=== PATIENT | female | born 1950 | race African-American/Black ===

== ENCOUNTER 2021-10-19 09:03 | Emergency (ER) | payer MEDICARE, SELFPAY ==
[2021-10-19 09:06] VITALS: BP 184/103; PULSE 85; RESP 22; TEMP 36.4; O2SAT 100
--- NOTE | 2021-10-19 09:36 | ED.EYEPROB ---
HPI - Eye Problem General Chief complaint: Eye Problems Stated complaint: Bleach In Eye Time Seen by Provider: 10/19/21 09:21 History of Present Illness HPI Narrative: Patient is a 71-year-old female here for evaluation of bleach splashed in her right eye this morning. Patient states she was leaning over the bathtub cleaning it, when a small amount of bleach splashed up into her right eye. She did wash the eye out with water and then artificial tears with good relief of her symptoms. She denies any visual changes, but states the eye is burning and stinging. She wears corrective lenses for farsightedness and follows with Dr. Ramirez. Related Data Allergies Allergy/AdvReac Type Severity Reaction Status Date / Time latex Allergy Severe localized Verified 07/03/16 17:59 skin reaction, Tetracyclines Allergy Intermediate itcy rash, Verified 07/03/16 17:59 anxiety erythromycin base Allergy Unknown Verified 12/25/14 08:21 Penicillins Allergy Unknown Verified 12/25/14 08:21 tetracycline Allergy Unknown Verified 12/25/14 08:21 Review of Systems Review of Systems: Gen: Denies fevers or chills Eyes: Reports eye pain. ENT: Denies congestion Respiratory: Denies shortness of breath or cough CV: Denies chest pain or palpitations GI: Denies abdominal pain nausea, emesis or diarrhea denies burning, urgency, frequency or hematuria Musculoskeletal: Denies back pain or muscle pain Neuro: Denies numbness, tingling, weakness or focal weakness Skin: Denies rash Except as documented, all other systems reviewed and negative [facility] Family History Family History (Updated 12/06/15 @ 23:19 by DOCTOR UNKNOWN) Father Hypertension Sibling Hypertension Family history of diabetes mellitus in first degree relative Family history of malignant neoplasm of ovary Patient's sister is Mother Family history of malignant neoplasm of ovary Patient's mother is Social History Social History Smoking status: Never smoker Alcohol intake: current Exam Narrative: APPEARANCE: Well appearing, no pain in distress, well-nourished. Head: normocephalic and atraumatic. EYES: No conjunctival injection bilaterally. Cataracts noted bilaterally. NOSE: No nasal drainage EARS: External ear normal in appearance THROAT: Oropharynx is clear. Mucous membranes are moist. NECK: Supple. No adenopathy, no masses. RESPIRATORY: Airway patent, respirations nonlabored. Clear to auscultation bilaterally, no rales, rhonchi, wheezing. CARDIOVASCULAR: Regular rate and rhythm without murmurs, rubs, or gallops. ABDOMINAL: Normoactive bowel sounds. Soft, nontender, nondistended. No rebound tenderness or guarding. MUSCULOSKELETAL: Extremities are warm and well-perfused. Moves all extremities well. No edema. NEURO: Normal speech. No focal neurologic deficits. SKIN: Skin is warm and dry. No rashes. PSYCHIATRIC: Normal affect/mood. Course Vital Signs Vital signs: Vital Signs Temperature 97.6 F 10/19/21 09:06 Pulse Rate 85 10/19/21 09:06 Respiratory Rate 22 H 10/19/21 09:06 Blood Pressure 184/103 H 10/19/21 09:06 Pulse Oximetry 100 10/19/21 09:06 Oxygen Delivery Room Air 10/19/21 09:06 Temperature 97.6 F 10/19/21 09:06 Pulse Rate 85 10/19/21 09:06 Respiratory Rate 22 H 10/19/21 09:06 Blood Pressure 184/103 H 10/19/21 09:06 Pulse Oximetry 100 10/19/21 09:06 Oxygen Delivery Room Air 10/19/21 09:06 MDM - Eye Problem MDM Narrative Medical decision making narrative: 71-year-old female here for evaluation of bleach splashed in her right eye this morning. Patient is hypertensive, likely due to the pain. Patient without significant conjunctival injection or obvious neurologic abnormality on exam. No pH strips available for testing. visual acuity 20/40 on the left, 20/50 on the right affected eye. Her eyes were irrigated at the eyewash station for 10 minutes. Discussed case
--- NOTE | 2021-10-19 10:39 | PC.NURSE ---
Pt bilateral eyes irrigated at eye wash station for 10 mins per verbal order of PA
[2021-10-19] MEDS: NEOMYCIN/POLYMYXIN/BACITRACIN OPHTH OINTMENT 3.5 GM TUBE 1 APPLIC RIGHT EYE (11:24)
== END 2021-10-19 11:28 | disposition home or self-care (01) ==
PROVIDERS: Emergency Provider General Practice; PCP Internal Medicine
DX: H10.9 Unspecified conjunctivitis (principal)
CPT/HCPCS: 99283; A9270

== ENCOUNTER 2024-02-08 16:14 | Outpatient (CLI) | payer MEDICARE, SELFPAY ==
--- NOTE | ~2024-02-08 | XR_ITS ---
EXAMINATION: XR chest 2V Exam Date/Time: 02/08/2024 16:32 CDT HISTORY: cough and chest tightness x 1.5 weeks Comparison: 07/03/2016. RESULT: Lines, tubes, and devices: None. Lungs and pleura: Clear. Cardiomediastinal silhouette: Stable. Other: No acute osseous or upper abdominal finding. IMPRESSION: No acute cardiopulmonary process. Reviewed, dictated and finalized at location K.
== END 2024-02-08 16:15 | disposition home or self-care (01) ==
LOC: ANHIMG 16:20
PROVIDERS: PCP Internal Medicine; Visit Provider Internal Medicine
DX: R05.9 Cough, unspecified (principal)
CPT/HCPCS: 71046

== ENCOUNTER 2024-03-03 12:58 | Outpatient (CLI) | payer MEDICARE, SELFPAY ==
--- NOTE | ~2024-03-03 | MM_ITS ---
EXAMINATION: MM screening [facility] w [facility] HISTORY: Screening TECHNIQUE: Craniocaudal and mediolateral oblique 3-D tomosynthesis images were obtained and synthetic 2-D images were generated. CAD analysis was submitted and interpreted. COMPARISON: No prior mammogram is available for comparison at this institution. BREAST PARENCHYMAL COMPOSITION: Not dense: There are scattered areas of fibroglandular density. FINDINGS: There is no evidence of suspicious mass, calcification, or architectural distortion to sugg est malignancy in either breast. There has been no suspicious interval change. IMPRESSION: 1. No mammographic evidence of malignancy. 2. Recommend routine screening mammography in one year. BI-RADS Category 1: Negative Reviewed, dictated and finalized at location B.
== END 2024-03-03 12:59 | disposition home or self-care (01) ==
LOC: CHSIMG 12:59
PROVIDERS: PCP Internal Medicine; Visit Provider Internal Medicine
DX: Z12.31 Encounter for screening mammogram for malignant neoplasm of breast (principal)
CPT/HCPCS: 77063; 77067

== ENCOUNTER 2024-04-21 18:07 | Emergency (ER) | payer MEDICARE, SELFPAY ==
--- NOTE | ~2024-04-21 | XR_ITS ---
EXAMINATION: XR chest 2V DATE: 04/21/2024 20:29 INDICATION: Cough. TECHNIQUE: Frontal and lateral views of the chest were obtained. COMPARISON: Chest 2 views 02/08/2024 FINDINGS: There is mild scarring at the lung apices. No pleural effusion or pneumothorax. The heart s ize is normal. IMPRESSION: 1. Mild scarring at the lung apices. Reviewed, dictated and finalized at location A. BLE REPRESENTATIVE
[2024-04-21 18:08] VITALS: PULSE 80; RESP 16; TEMP 36.9; O2SAT 100
[2024-04-21 19:30] LABS: Basophils Percent Auto 0.3 % (0.2-1.2); Hematocrit 39.8 % (37.0-47.0); Hemoglobin 12.7 g/dL (12.0-15.0); Immature Granulocyte Absolute 0.05 K/mm3 (0.00-0.031); Immature Granulocyte Percent A 0.4 % (0-0.5); Lymphocytes Absolute Auto 1.07 K/mm3 (0.9-3.2); Lymphocytes Percent Auto 8.3 % (18.3-44.2); Mean Corpuscular HGB Conc 31.9 g/dl (32-36); Mean Corpuscular Hemoglobin 27.5 pg (26-34); Mean Corpuscular Volume 86.3 fl (80-100); Mean Platelet Volume 10.6 fl (7.4-10.4); Monocytes Absolute Auto 0.5 K/mm3 (0.1-0.6); Monocytes Percent Auto 4.1 % (2.6-8.5); Neutrophils Absolute Auto 11.2 K/mm3 (1.3-6.7); Neutrophils Percent Auto 86.9 % (45.5-73.1); Platelet Count Result 272 k/mm3 (150-375); Red Blood Count 4.61 M/mm3 (4.2-5.4); Red Cell Distribution Width 13.9 % (11.5-14.5); White Blood Count 12.9 K/mm3 (4.5-10.0)
[2024-04-21 19:42] LABS: Alanine Aminotransferase 24 U/L (6-35); Albumin Level 4.3 g/dL (3.5-5.1); Alkaline Phosphatase 83 U/L (38-126); Anion Gap 4 mmol/L (4-12); Aspartate Amino Transferase 34 U/L (14-36); Bilirubin,Total 0.6 mg/dL (0.2-1.3); Blood Urea Nitrogen 12 mg/dL (7-17); Calcium 9.2 mg/dL (8.4-10.2); Carbon Dioxide 24 mmol/L (22-30); Chloride 103 mmol/L (98-107); Estimated CRCL calculation 51 ml/min; Estimated Glomerular Filt Rate > 60; Glucose 111 mg/dL (65-110); Potassium 5.1 mmol/L (3.4-5.0); Sodium 131 mmol/L (137-145)
--- NOTE | 2024-04-21 20:17 | ED_ITS ---
HPI - Weakness General Chief complaint: Weakness Stated complaint: weakness Time Seen by Provider: 04/21/24 19:42 History of Present Illness HPI Narrative: Patient is a 73-year-old female who presents to the ER with complaints of dehydration. She reports she has a history of IBS and can tell when she is starting to become dehydrated. Patient reports her symptoms started yesterday. She has been able to take in p.o. and urinating normally. Patient denies sore throat or fevers. She endorses a cough, abdominal cramping, and headache. Patient reports she thinks her cough is due to acid reflux. She reports her IBS causes her to have constant diarrhea that she has not improved in 2 days. Today she reports she had a small bowel movement approximately half an hour prior to time of examination. Patient reports the bowel movement was small and formed. She also reports she has a history of hypoglycemia. Related Data Allergies Allergy/AdvReac Type Severity Reaction Status Date / Time latex Allergy Severe localized Verified 07/03/16 17:59 skin reaction, Tetracyclines Allergy Intermediate itcy rash, Verified 07/03/16 17:59 anxiety erythromycin base Allergy Unknown Verified 12/25/14 08:21 Penicillins Allergy Unknown Verified 12/25/14 08:21 tetracycline Allergy Unknown Verified 12/25/14 08:21 Review of Systems 2 Review of Systems: All systems reviewed & are unremarkable except as noted in HPI and below PMFSH Family History Family History Father Hypertension Sibling Hypertension Family history of diabetes mellitus in first degree relative Family history of malignant neoplasm of ovary Patient's sister is Mother Family history of malignant neoplasm of ovary Patient's mother is Social History Social History Smoking status: Never smoker Alcohol intake: current Exam 2 Narrative: GENERAL: Well appearing, well-nourished, non-toxic, in no acute distress. HEAD: Normocephalic, atraumatic. NECK: Supple. No adenopathy, no masses. RESPIRATORY: Airway patent, respirations nonlabored. Clear to auscultation bilaterally, no rales, rhonchi, wheezing. CARDIOVASCULAR: Regular rate and rhythm without murmurs, rubs, or gallops. Peripheral pulses 2+ and equal bilaterally. ABDOMINAL: Soft, nontender, nondistended, no hepatosplenomegaly. Normoactive BS. MUSCULOSKELETAL: Moves all extremities. Strength/ROM intact without gross deformities. SKIN: Warm, dry, normal color. No rashes. NEURO: A&O X3. Speech clear. Cranial nerves II-XII grossly intact. Steady gait. No ataxic movements. PSYCHIATRIC: Appropriate mood and affect. Normal interaction. Course Vital Signs Vital signs: Vital Signs Temperature 36.9 C 04/21/24 18:08 Pulse Rate 80 04/21/24 18:08 Respiratory Rate 16 04/21/24 18:08 Pulse Oximetry 100 04/21/24 18:08 Temperature 37.1 C 04/21/24 22:27 Pulse Rate 60 04/21/24 22:27 Respiratory Rate 18 04/21/24 22:27 Blood Pressure 149/68 H 04/21/24 22:27 Pulse Oximetry 100 04/21/24 22:27 MDM - Weakness MDM Narrative Medical decision making narrative: Patient is a 73-year-old female who presents to the ER with complaints of dehydration. She reports she has a history of IBS and can tell when she is starting to become dehydrated. Patient reports her symptoms started yesterday. She has been able to take in p.o. and urinating normally. Patient denies sore throat or fevers. She endorses a cough, abdominal cramping, and headache. Patient reports she thinks her cough is due to acid reflux. She reports her IBS causes her to have constant diarrhea that she has not improved in 2 days. Today she reports she had a small bowel movement approximately half an hour prior to time of examination. Patient reports the bowel movement was small and formed. She also reports she has a history of hypoglycemia. Labs Ordered: CBC, CMP, betahydroxy, phosphorus, magnesium, INR, PTT, hem A1C, lipase, troponin Imaging Ordered: chest x-ray, pt declined an abdominal CT scan Results: Pt chest x-ray indicates There is mild scarring at the lung apices. No pleural effusion or pneumothorax. The heart size is normal. Patient's CBC indicates white blood cell count of 12.9. Her CMP indicates a sodium of 131, potassium of 5 1, glucose of 111, phosphorus of 2.0. patient's troponin was negative. Her lipase was 40. Her beta hydroxybutyrate was 0.21. Patient's A1c was 5.5% Diagnosis: Mild dehydration due to IBS Patient Education/Shared MDM: Patient declined a a CT abdominal scan. She is fairly confident that she knows what is causing symptoms, as she has experienced this before. Results shared with the patient. Patient reports she is feeling much better after 1 L normal saline IV bolus. She reports she would like to be discharged home. Patient advised to follow-up with her primary care provider on Wednesday. She verbalizes understanding and is in agreement with plan. Differential Diagnosis Differential diagnosis: Likely hypoglycemia, dehydration and other (IBS flare- up) Lab Data Attestation: I reviewed the patient's lab results. 04/21/24 19:24 04/21/24 19:24 Labs: Lab Results 04/21/24 04/21/24 04/21/24 Range/Units 19:21 19:24 21:32 WBC 12.9 H (4.5-10.0) K/mm3 RBC 4.61 (4.2-5.4) M/mm3 Hgb 12.7 (12.0-15.0) g/dL Hct 39.8 (37.0-47.0) % MCV 86.3 (80-100) fl MCH 27.5 (26-34) pg MCHC 31.9 L (32-36) g/dl RDW 13.9 (11.5-14.5) % Plt Count 272 (150-375) k/mm3 MPV 10.6 H (7.4-10.4) fl Immature Gran % (Auto) 0.4 (0-0.5) % Neut % (Auto) 86.9 H (45.5-73.1) % Lymph % (Auto) 8.3 L (18.3-44.2) % [place] % (Auto) 4.1 (2.6-8.5) % Eos % (Auto) 0.0 (0-4.4) % Baso % (Auto) 0.3 (0.2-1.2) % Lymph # (Auto) 1.07 (0.9-3.2) K/mm3 [place] # (Auto) 0.5 (0.1-0.6) K/mm3 Eos # (Auto) 0.0 (0-0.3) K/mm3 Baso # (Auto) 0.0 (0.0-0.1) K/mm3 Abs Immat Gran (auto) 0.05 H (0.00-0.031) K/mm3 Absolute Neuts (auto) 11.2 H (1.3-6.7) K/mm3 Absolute Nucleated RBC 0.000 (0.0-0.012) K/mm3 Nucleated RBC % 0.0 (0.0-0.2) % PT 13.3 (11.1-14.7) Seconds INR 1.0 APTT 30.2 (22.3-36.8) Seconds Sodium 131 L (137-145) mmol/L Potassium 5.1 H (3.4-5.0) mmol/L Chloride 103 (98-107) mmol/L Carbon Dioxide 24 (22-30) mmol/L Anion Gap 4 (4-12) mmol/L BUN 12 (7-17) mg/dL Creatinine 0.70 (0.7-1.0) mg/dL Estim Creat Clear Calc 51 ml/min Estimated GFR > 60 (59 - ) Glucose 111 H (65-110) mg/dL Hemoglobin A1c 5.5 (<5.7) % Calcium 9.2 (8.4-10.2) mg/dL Phosphorus 2.0 L (2.5-4.5) mg/dL Magnesium 2.0 (1.6-2.3) mg/dL Total Bilirubin 0.6 (0.2-1.3) mg/dL AST 34 (14-36) U/L ALT 24 (6-35) U/L Alkaline Phosphatase 83 (38-126) U/L Troponin I < 0.012 (0.000-0.034) ng/mL Total Protein 8.0 (6.3-8.2) g/dL Albumin 4.3 (3.5-5.1) g/dL Lipase 40 (23-300) U/L Beta-Hydroxybutyrate/Acetoacetate 0.21 (0.02-0.27) mmol/L Urine Color (Yellow) Urine Appearance (Clear) Urine pH (5.0-9.0) Ur Specific [place] (1.001-1.035) Urine Protein (Negative) mg/dL Urine Glucose (UA) (Negative) mg/dL Urine Ketones (Negative) mg/dL Ur Blood (Man) (Negative) Urine Nitrate (Negative) Urine Bilirubin (Negative) Urine Urobilinogen (<2.0) mg/dL Leukocyte Esterase Rfl (Negative) AMADO/UL Influenza A (RT-PCR) Negative (Negative) Influenza B (RT-PCR) Negative (Negative) RSV (RT-PCR) Negative (Negative) SARS-CoV-2 RNA (RT-PCR) Negative (Negative) 04/21/24 Range/Units 22:34 WBC (4.5-10.0) K/mm3 RBC (4.2-5.4) M/mm3 Hgb (12.0-15.0) g/dL Hct (37.0-47.0) % MCV (80-100) fl MCH (26-34) pg MCHC (32-36) g/dl RDW (11.5-14.5) % Plt Count (150-375) k/mm3 MPV (7.4-10.4) fl Immature Gran % (Auto) (0-0.5) % Neut % (Auto) (45.5-73.1) % Lymph % (Auto) (18.3-44.2) % [place] % (Auto) (2.6-8.5) % Eos % (Auto) (0-4.4) % Baso % (Auto) (0.2-1.2) % Lymph # (Auto) (0.9-3.2) K/mm3 [place] # (Auto) (0.1-0.6) K/mm3 Eos # (Auto) (0-0.3) K/mm3 Baso # (Auto) (0.0-0.1) K/mm3 Abs Immat Gran (auto) (0.00-0.031) K/mm3 Absolute Neuts (auto) (1.3-6.7) K/mm3 Absolute Nucleated RBC (0.0-0.012) K/mm3 Nucleated RBC % (0.0-0.2) % PT (11.1-14.7) Seconds INR APTT (22.3-36.8) Seconds Sodium (137-145) mmol/L Potassium (3.4-5.0) mmol/L Chloride (98-107) mmol/L Carbon Dioxide (22-30) mmol/L Anion Gap (4-12) mmol/L BUN (7-17) mg/dL Creatinine (0.7-1.0) mg/dL Estim Creat Clear Calc ml/min Estimated GFR (59 - ) Glucose (65-110) mg/dL Hemoglobin A1c (<5.7) % Calcium (8.4-10.2) mg/dL Phosphorus (2.5-4.5) mg/dL Magnesium (1.6-2.3) mg/dL Total Bilirubin (0.2-1.3) mg/dL AST (14-36) U/L ALT (6-35) U/L Alkaline Phosphatase (38-126) U/L Troponin I (0.000-0.034) ng/mL Total Protein (6.3-8.2) g/dL Albumin (3.5-5.1) g/dL Lipase (23-300) U/L Beta-Hydroxybutyrate/Acetoacetate (0.02-0.27) mmol/L Urine Color Yellow (Yellow) Urine Appearance Clear (Clear) Urine pH 7.0 (5.0-9.0) Ur Specific [place] 1.002 (1.001-1.035) Urine Protein Negative (Negative) mg/dL Urine Glucose (UA) Negative (Negative) mg/dL Urine Ketones Negative (Negative) mg/dL Ur Blood (Man) Negative (Negative) Urine Nitrate Negative (Negative) Urine Bilirubin Negative (Negative) Urine Urobilinogen 0.2 (<2.0) mg/dL Leukocyte Esterase Rfl Negative (Negative) AMADO/UL Influenza A (RT-PCR) (Negative) Influenza B (RT-PCR) (Negative) RSV (RT-PCR) (Negative) SARS-CoV-2 RNA (RT-PCR) (Negative) Imaging Data Attestation: I personally reviewed and interpreted this imaging study as follows: Radiologist's impression: Impressions Chest X-Ray 04/21/24 20:39 IMPRESSION: 1. Mild scarring at the lung apices. Discharge Plan Discharge Clinical Impression: Dehydration Patient Disposition: Home, Self-Care Condition: Stable Instructions: Antibiotic Form, Dehydration (ED) Additional Instructions: Please return to the ER with an worsening symptoms. Follow-up with primary care provider in the next 2-3 days. Take all medications as prescribed. Patient Language: Azeri Prescriptions: No Action bacitracin 500 unit/gram ointment 1 applic RIGHT EYE Q8H 5 Days Qty: 3.5 0RF Follow-up/Referrals: Stephanie Layton MD [Primary Care Provider] - Time of Disposition: 23:46
--- NOTE | 2024-04-21 20:20 | ECG_ITS ---
Test Date: 2024-04-21 21:31:02 Measurements Intervals [place] Rate: 65 P: 54 MT: 168 QRS: -14 QRSD: 98 T: 13 QT: 418 QTc: 436 Interpretive Statements SINUS RHYTHM POSSIBLE LEFT ATRIAL ENLARGEMENT [-0.1mV P-WAVE IN V1/V2] POSSIBLE LEFT VENTRICULAR HYPERTROPHY [VOLTAGE CRITERIA PLUS LAE OR QRS WIDENING] No previous ECG available for comparison Electronically Signed On 04-22-2024 08:58:38 REHABILITATION SUPERVISOR by Pancho Miller M.D.
[2024-04-21 20:35] LABS: Lipase 40 U/L (23-300)
[2024-04-21 20:48] LABS: Troponin I < 0.012 ng/mL (0.000-0.034)
[2024-04-21] MEDS: SODIUM CHLORIDE 0.9% IV 1,000 ML 999 ML IV CONT (21:01)
[2024-04-21 21:17] LABS: Prothrombin Time 13.3 Seconds (11.1-14.7)
[2024-04-21 21:18] LABS: Partial Thromboplastin Time 30.2 Seconds (22.3-36.8)
[2024-04-21 22:15] LABS: Influenza A QL RT-PCR Negative (Negative); Influenza B QL RT-PCR Negative (Negative); RSV RNA, RT-PCR Negative (Negative); SARS-CoV-2 RNA PCR Negative (Negative)
[2024-04-21 22:27] VITALS: BP 149/68; PULSE 60; RESP 18; TEMP 37.1; O2SAT 100
[2024-04-21 22:39] LABS: Add Urine Microscopic? NO; Appearance Urine Clear (Clear); Bilirubin Urine Negative (Negative); Blood Urine Negative (Negative); Color Urine Yellow (Yellow); Glucose Urine UA Negative (Negative); Ketones Urine Negative (Negative); Leukocyte Esterase Ur Negative LEU/UL (Negative); Nitrate Urine Negative (Negative); Protein Urine Negative (Negative); Specific Grav Ur 1.002 (1.001-1.035); Urobilinogen Urine 0.2 mg/dL (<2.0)
[2024-04-21 23:29] LABS: Beta-Hydroxybutyrate/Acetoacetate 0.21 mmol/L (0.02-0.27)
[2024-04-21 23:31] LABS: Hemoglobin A1C 5.5 % (<5.7)
--- OUTSIDE RECORDS SUMMARY | 2024-04-25 11:21 | XMS_ITS | Clinical Summary ---
Author Organization [facility] Address [address] [place] [address] Care Team Providers Care Sales Secretary Name Role Phone Stephanie Layton MD Primary Care Provider [phone] Source Comments [facility],non-[facility] Affiliates and Associated Physician Practices is amultiple site organization consisting of ambulatory clinics and hospital sitesin [place], [place], [place] and [place]. This disclosure is being madepursuant to the Care Everywhere program and may not contain all information available regarding this patient. Last updated 18.[facility] Allergies Active Allergy Reactions Criticality Noted Date Comments Erythromycin 01/18/2017 Latex 01/18/2017 Penicillins Rash Medium 01/18/2017 Urethane 01/18/2017 Tetracycline Itching 06/09/2018 Medications * Be aware that medications may not be up to date on this document. Alwaysverify current medications with the patient. Medication Sig Dispensed Refills Start Date End Date Status fluticasone propionate (FLONASE) 50 MCG/ACT nasal spray [place] 2 Sprays into each nostril once daily Active mometasone (NASONEX) 50 MCG/ACT nasal spray [place] 1 [place] into each nostril 2 times daily Active chloramphenicol (CHLOROMYCETIN) 30 mg/ml Take by mouth once daily Active olopatadine (PATADAY) 0.2 % ophthalmic solution Instill 1 (one) drop into both eyes once daily 2.5 mL 08/03/2020 Active Social History Tobacco Use Types Packs/Day Years Used Date Smoking Tobacco: Never Smokeless Tobacco: Never Tobacco Cessation:Counseling Given: Yes Sex and Gender Information Value Date Recorded Sex Assigned at Not on file Gender Identity Not on file Sexual Orientation Not on file Last Filed Vital Signs Vital Sign Reading Time Taken Comments Blood Pressure 142/90 08/03/2020 3:06 PM CDT Pulse 68 08/03/2020 3:06 PM CDT Temperature 36.9 ??C (98.4 ??F) 08/03/2020 3:06 PM CD T Respiratory Rate 16 08/03/2020 3:06 PM CDT Oxygen Saturation 97% 08/03/2020 3:06 PM CDT Inhaled Oxygen Concentration - - Weight 68 kg (150 lb) 08/03/2020 3:06 PM CDT Height 160 cm (5' 3 ) 08/03/2020 3:06 PM CDT Body Mass Index 26.57 08/03/2020 3:06 PM CDT Plan of Treatment Health Maintenance Due Date Last Done Comments BONE DENSITY TESTING 1950 COLOGUARD (AGES 45-75) - COL ON CA SCREENING 1950 COLON MONITORING 1950 COLONOSCOPY - COLON CA SCREENING 1950 CT COLONOGRAPHY - COLON CA SCREENING 1950 Colorectal Cancer Screening 1950 FIT - COLON CA SCREENING 1950 FLEX SIG - COLON CA SCREENING 1950 LIPID TESTING 1950 MAMMOGRAM 1950 HEPATITIS C SCREENING 05/02/1968 DTAP/TDAP/TD VACCINES (1 - Tdap) 1969 ZOSTER VACCINE (1 of 2) 2000 PNEUMOCOCCAL VACCINE 65+ (1 of 1 - PCV) 2015 SCREENING FOR DIABETES 08/03/2020 DEPRESSION SCREENING 05/10/2023 MEDICARE AWV ? CALENDAR YEAR 2023 COVID-19 VACCINE (3 - 2023-2 5 season) 2024 06/28/2020, 06/07/2020 INFLUENZA VACCINE (#1) 2024 Respiratory Syncytial Virus (RSV) Vaccine Pt: or over 60 yrs (1 - 1-dose 75+ series) 2025 HEPATITIS B VACCINE Aged Out No longe r eligible based on patient's age to complete this topic HIB VACCINE Aged Out No longer eligi ble based on patient's age to complete this topic HPV VACCINE Aged Out No longer eligi ble based on patient's age to complete this topic MENINGOCOCCAL VACCINE Aged Out No brigitte mami eligible based on patient's age to complete this topic Care Teams Sales Secretary Relationship Specialty Start Date End Date Stephanie Layton MD PCP - General Internal Medicine 08/03/20
--- OUTSIDE RECORDS SUMMARY | 2024-04-25 11:21 | XMS_ITS | Encounter Summary ---
Author Organization [facility] [employer] Address [address] [place] [address] Care Team Providers Care Russet Repairer Name Role Phone Unavailable Primary Care Provider Unavailabl e Reason for Visit * Reason Onset Date Comments Medication Issue 06/11/2018 Patient Requested Call 06/11/2018 Update 06/11/2018 Medication Request 06/11/2018 Encounter Details Date Type Department Care Team (Late st Contact Info) Description 06/11/2018 Telephone [facility] [address] [phone] Provider, Theodore Hsieh [place] Medication Issue; Patient Requested Call; Update; Medication Request Social History Tobacco Use Types Packs/Day Years Used Date Smoking Tobacco: Never Smokeless Tobacco: Never Sex and Gender Information Value Date Recorded Sex Assigned at Not on file Gender Identity Not on file Sexual Orientation Not on file documented as of this encounter Miscellaneous Notes * Telephone Encounter - Brian Smith APRN-CNP - 06/11/2018 3:32 PM TRANSIT OPERATOR Pt states she is not tolerated the medication well. We are going to switch her to Cipro. See note in chart. Pt VU SIT OPERATOR * Telephone Encounter - Zoraida Dupont - 06/11/2018 2:42 PM CST Who is calling? self What is the reason for call? Calling to update the DIRECTOR LEARNING SERVICES. Pt was seen on 06/09/18 and Dx with Acute cystitis with hematuria +1. Pt was prescribed nitrofurantoin monohyd macro crystals (MACROBID) 100 MG capsules. Pt is stating this medication is really tearing up her stomach and she does not feel safe continuing with this medication. Pt is requesting an alternative medication at this time. Expected Response from the Clinic? ( ex. Call back, etc..) Please advise Pt at [phone] (H) SIT OPERATOR documented in this encounter Plan of Treatment Not on file documented as of this encounter Visit Diagnoses Not on filedocumented in this encounter
--- OUTSIDE RECORDS SUMMARY | 2024-04-25 11:21 | XMS_ITS | Referral Summary ---
Author Organization [facility] [employer] Address [address] [place] [address] Care Team Providers Care Mold Car Pusher Name Role Phone Stephanie Layton MD Primary Care Provider [phone] Source Comments [facility],non-[facility] Affiliates and Associated Physician Practices is amultiple site organization consisting of ambulatory clinics and hospital sitesin [place], [place], [place] and [place]. This disclosure is being madepursuant to the Care Everywhere program and may not contain all information available regarding this patient. Last updated 18.[facility] [employer] Allergies Active Allergy Reactions Criticality Noted Date Comments Erythromycin 01/18/2017 Latex 01/18/2017 Penicillins Rash Medium 01/18/2017 Urethane 01/18/2017 Tetracycline Itching 06/09/2018 Medications * Be aware that medications may not be up to date on this document. Alwaysverify current medications with the patient. Medication Sig Dispensed Refills Start Date End Date Status fluticasone propionate (FLONASE) 50 MCG/ACT nasal spray [place] 2 Sprays into each nostril once daily Active mometasone (NASONEX) 50 MCG/ACT nasal spray [place] 1 [place] into each nostril 2 times daily Active [...] 08/03/2020 3:06 PM CDT Plan of Treatment Not on file Care Teams Mold Car Pusher Relationship Specialty Start Date End Date Stephanie Layton MD PCP - General Internal Medicine 08/03/20
--- OUTSIDE RECORDS SUMMARY | 2024-04-25 11:21 | XMS_ITS | Encounter Summary ---
Author Organization [facility] Address [address] [place] [address] Care Team Providers Care Mud Analysis Supervisor Name Role Phone Stephanie Layton MD Primary Care Provider [phone] Reason for Visit * Reason Onset Date Comments Follow-up 08/05/2020 Encounter Details Date Type Department Care Team (Late st Contact Info) Description 08/05/2020 Telephone [facility] [employer] [facility] AT [address] [phone] Ada Rinaldi Follow-up Social History Tobacco Use Types Packs/Day Years Used Date Smoking Tobacco: Never Smokeless Tobacco: Never Sex and Gender Information Value Date Recorded Sex Assigned at Not on file Gender Identity Not on file Sexual Orientation Not on file COVID-19 Exposure Response Date Recorded In the last month, have you been in contact with someone who was confirmed or suspected to have Coronavirus / COVID-19? No / Unsure 08/03/2020 1:23 PM CDT documented as of this encounter Miscellaneous Notes * Telephone Encounter - Ada Rinaldi - 08/05/2020 12:33 PM CDT Courtesy follow-up phone call made to patient. Message left advising patient to call service [facility] [phone] if they have any questions or concerns. documented in this encounter Plan of Treatment Not on file documented as of this encounter Visit Diagnoses Not on filedocumented in this encounter Care Teams Mud Analysis Supervisor Relationship Specialty Start Date End Date Stephanie Layton MD PCP - General Internal Medicine 08/03/20 documented as of this encounter
--- OUTSIDE RECORDS SUMMARY | 2024-04-25 11:21 | XMS_ITS | Encounter Summary ---
Author Organization [facility] Address [address] [place] [address] Care Team Providers Care Giant Tire Repairer Name Role Phone Stephanie Layton MD Primary Care Provider [phone] Encounter Details Date Type Department Care Team (Latest Contact Info) Description 08/03/2020 Travel Social History Tobacco Use Types Packs/Day Years Used Date Smoking Tobacco: Never Assessed Sex and Gender Information Value Date Recorded Sex Assigned at Not on file Gender Identity Not on file Sexual Orientation Not on file COVID-19 Exposure Response Date Recorded In the last month, have you been in contact with someone who was confirmed or suspected to have Coronavirus / COVID-19? No / Unsure 08/03/2020 1:23 PM CDT documented as of this encounter Plan of Treatment Not on file documented as of this encounter Visit Diagnoses Not on filedocumented in this encounter Care Teams Giant Tire Repairer Relationship Specialty Start Date End Date Stephanie Layton MD PCP - General Internal Medicine 08/03/20 documented as of this encounter
--- OUTSIDE RECORDS SUMMARY | 2024-04-25 11:21 | XMS_ITS | Patient Health Summary ---
Author Organization [facility] Address [address] [place] [address] Care Team Providers Care Pmo Manager Name Role Phone Stephanie Layton MD Primary Care Provider [phone] Note from [facility],non-owned Affiliates and Associated Physician Practices is amultiple site organization consisting of ambulatory clinics and hospital sitesin [place], [place], [place] and [place]. This disclosure is being madepursuant to the Care Everywhere program and may not contain all information available regarding this patient. Last updated 18.[facility] Allergies * Erythromycin * Latex * Penicillins(Rash) -Medium Criticality * Urethane * Tetracycline(Itching) Medications * Be aware that medications may not be up to date on this document. Alwaysverify current medications with the patient. * fluticasone propionate (FLONASE) 50 MCG/ACT nasal spray [place] 2 Sprays into each nostril once daily * mometasone (NASONEX) 50 MCG/ACT nasal spray [place] 1 [place] into each nostril 2 times daily * chloramphenicol (CHLOROMYCETIN) 30 mg/ml Take by mouth once daily * olopatadine (PATADAY) 0.2 % ophthalmic solution(Started 08/03/2020) Instill 1 (one) drop into both eyes once daily Social History Tobacco Use Types Packs/Day Years [...] Mass Index 26.57 08/03/2020 3:06 PM CDT Procedures * CULTURE URINE(Performed 06/09/2018) Performed for Acute cystitis with hematuria * URINALYSIS AUTO - POINT OF CARE (AMB) STL(Performed 06/09/2018) Performed for Acute cystitis with hematuria Results * (ABNORMAL) CULTURE URINE (06/09/2018 10:59 AM RADIATOR SPECIALIST) Culture (A) [facility] Comment: ??CULTURE, URINE, ROUTINE ?MICRO NUMBER: ?[id number] ??TEST STATUS: ? FINAL ??SPECIMEN SOURCE: ?? URINE, CLEAN CATCH ??SPECIMEN QUALITY: ??ADEQUATE ??RESULT: ?10,000-50,000 CFU/mL of Escherichia coli ?E.coli ?INT ?? JAMES ?? AMOX/CLAVULANATE ? S ? <=2 ?? AMPICILLIN ? S ? <=2 ?? AMP/SULBACTAM ?S ? <=2 ?? CEFAZOLIN ?NR ?<=4 2 ?? CEFEPIME ? S ? <=1 ?? CEFTRIAXONE ?S ? <=1 ?? CIPROFLOXACIN ?S ? <=0.25 ?? ERTAPENEM ?S ? <=0.5 ?? GENTAMICIN ? S ? <=1 ?? IMIPENEM ? S ? <=0.25 ?? LEVOFLOXACIN ? S ? <=0.12 ?? NITROFURANTOIN ? S ? <=16 ?? PIP/TAZOBACTAM ? S ? <=4 ?? TOBRAMYCIN ? S ? <=1 ?? TRIMETHOPRIM/SULFA ? S ? <=20 S=Susceptible ??I=Intermediate ??R=Resistant ??* = Not Tested NR = Not Reported ??NN = See Therapy Comments THERAPY COMMENTS ?Note 1: ?For infections other than uncomplicated UTI ?caused by E. coli, K. pneumoniae or P. mirabilis: ?Cefazolin is resistant if JAMES > or = 8 mcg/mL. ?(Distinguishing susceptible versus intermediate ?for isolates with JAMES < or = 4 mcg/mL requires ?additional testing.) ?Note 2: ?For uncomplicated UTI caused by E. coli, ?K. pneumoniae or P. mirabilis: Cefazolin is ?susceptible if JAMES <32 mcg/mL and predicts ?susceptible to the oral agents cefaclor, cefdinir, ?cefpodoxime, cefprozil, cefuroxime, cephalexin ?and loracarbef. Test Performed at: [facility] ??[id number] EDMOND HIDALGO MD Urine URINE SPECIMEN OBTAINED BY CLEAN CATCH PROCEDURE / Unknown 06/09/2018 10:59 AM RADIATOR SPECIALIST 06/11/2018 12:42 AM RADIATOR SPECIALIST Connor Chery APRN-CANDY BAR ATTENDANT LAB - MICROBIOLOG Y ORDERABLES [address] [address] * (ABNORMAL) URINALYSIS AUTO - POINT OF CARE (AMB) STL (06/09/2018 10:51 AM RADIATOR SPECIALIST) Clarity UA POCT cloudy Color UA POCT yellow Leukocyte UA 125+ Negative Nitrite UA POCT negative Negative Urobilinogen UA 0.2 0.1 - 1.0 Protein UA POCT 15+ Negative pH UA 6.0 5.0 - 8.0 pH units Blood UA 50 Negative Specific [place] UA POCT 1.015 1.002 - 1.030 Ketone UA negative Negative Bilirubin UA POCT negative Negative Glucose UA negative Negative Expiration Date [id number] Lot # [id number] QC Verified Yes Yes Urine URINE / Unknown 06/09/2018 1 0:51 AM RADIATOR SPECIALIST Connor PACHECOCANDY BAR ATTENDANT LAB - POINT OF CA RE ORDERABLES Care Teams Pmo Manager Relationship Specialty Start Date End Date Stephanie Layton MD PCP - General Internal Medicine 08/03/20
--- OUTSIDE RECORDS SUMMARY | 2024-04-25 11:21 | XMS_ITS | Encounter Summary ---
Author Organization [facility] Address [address] [place] [address] Care Team Providers Care Mixer Foam Rubber Name Role Phone Stephanie Layton MD Primary Care Provider [phone] Reason for Visit * Reason Comments Eye Problem started today left e ye Encounter Details Date Type Department Care Team (Late st Contact Info) Description 08/03/2020 3:30 PM CDT Office Visit [facility] AT [address] [address] Provider, [facility] Allergic conjunctivitis of left eye (Primary Dx) Social History Tobacco Use Types Packs/Day Years [...] PM CDT documented as of this encounter Last Filed Vital Signs Vital Sign Reading [...] Mass Index 26.57 08/03/2020 3:06 PM CDT documented in this encounter Patient Instructions * Patient Instructions* Breana Spence, ADMIN DIR-EVALUATION ASSISTANT - 08/03/2020 3:36 PM CDT Patient Education Conjunctivitis WHAT YOU NEED TO KNOW: What is conjunctivitis? Conjunctivitis, or pink eye, is inflammation of your conjunctiva. The conjunctiva is a thin tissue that covers the front of your eye and the back of your eyelids. The conjunctiva helps protect your eye and keep it moist. What causes conjunctivitis? Conjunctivitis is easily spread from person to person. The most common cause of conjunctivitis is infection with bacteria or a virus. This often happens when bacteria getsinto your eye. This can happen when you touch your eye or wear contact lenses. Allergies are also acommon cause of conjunctivitis. The cells in your conjunctiva can react to an allergen. Some examples of allergens include grass, dust, animal fur, or mascara. What are the signs and symptoms of conjunctivitis? You will usually have symptoms in both eyes if your conjunctivitis is caused by allergies. You may also have other allergic symptoms, such as a rashor runny nose. Symptoms will usually start in 1 eye if your conjunctivitis is caused by a virus or bacteria. You may also have other symptoms of an infection, such as sore throat and fever. You may have any of the following: ?? Redness in the whites of your eye ?? Itching in your eye or around your eye ?? Feeling like there is something in your eye ?? Watery or thick, sticky discharge ?? Crusty eyelids when you wake up in the morning ?? Burning, stinging, or swelling in your eye ?? Pain when you see bright light How is conjunctivitis diagnosed? Your healthcare provider will ask about your symptoms and medical history. He will ask if you have been around anyone who is sick or has pink eye. He will ask if you have allergies. Tell him if you wear contact lenses. You may need any of the following: ?? An eye exam will be done by your healthcare provider. He will look at your eyes, eyelids, eyelashes, and the skin around your eyes. He will ask you to look in different directions. He may gently press on your eye or eyelid to see if there is drainage. He will also look for redness and swelling in your eyelids or conjunctiva. Your healthcare provider may gently swab your conjunctiva with a cotton swab and send it to the lab for tests. This will help your healthcare provider find out what is causing your conjunctivitis. ?? A slit-lamp microscope is a special microscope with a bright light used to look into your eye. Your healthcare provider will look for signs of infection or inflammation. This microscope also helpshim see if the different parts of your eyes are healthy. How is conjunctivitis treated? Your conjunctivitis may go away on its own. Treatment depends on what is causing your conjunctivitis. You may need any of the following: ?? Allergy medicine helps decrease itchy, red, swollen eyes caused by allergies. It may be given asa pill, eye drops, or nasal spray. ?? Antibiotics may be needed if your conjunctivitis is caused by bacteria. This medicine may be given as a pill, eye drops, or eye ointment. How can I manage my symptoms? ?? Apply a cool compress. Wet a washcloth with cold water and place it on your eye. This will help decrease itching and irritation. ?? Do not wear contact lenses. They can irritate your eye. Throw away the pair you are using and ask when you can wear them again. Use a new pair of lenses when your healthcare provider says it is okay. ?? Avoid irritants. Stay away from smoke filled areas. Shield your eyes from wind and sun. ?? Flush your eye. You may need to flush your eye with saline to help decrease your symptoms. Ask for more information on how to flush your eye. How do I prevent the spread of conjunctivitis? ?? Wash your hands with soap and water often. Wash your hands before and after you touch your eyes.Also wash your hands before you prepare or eat food and after you use the bathroom or change a diaper. ?? Avoid allergens. Try to avoid the things that cause your allergies, such as pets, dust, or grass. ?? Avoid contact with others. Do not share towels or washcloths. Try to stay away from others as much as possible. Ask when you can return to work or school. ?? Throw away eye makeup. The bacteria that caused your conjunctivitis can stay in eye makeup. Throw away mascara and other eye makeup. When should I seek immediate care? ?? You have worsening eye pain. ?? The swelling in your eye gets worse, even after treatment. ?? Your vision suddenly becomes worse or you cannot see at all. When should I contact my healthcare provider? ?? You develop a fever and ear pain. ?? You have tiny bumps or spots of blood on your eye. ?? You have questions or concerns about your condition or care. CARE AGREEMENT: You have the right to help plan your care. Learn about your health condition and how it may be treated. Discuss treatment options with your healthcare providers to decide what care you want to receive. You always have the right to refuse treatment. The above information is an teacher aide clerical only. It is not intended as medical advice for individual conditions or treatments. Talk to your doctor, nurse or pharmacist before following any medical regimen to see if it is safe and effective for you. ?? Copyright [employer] 2020 Information is for End User's use only and may not be sold, redistributed or otherwise used for commercial purposes. All illustrations and images included in CareNotes?? are the copyrighted property of [email or web address] or [employer] documented in this encounter Progress Notes * Breana Spence APRN-CNP - 08/03/2020 3:16 PM CDT Subjective: Erin An is a 70 year old female who presents for evaluation: Chief Complaint Patient presents with ??? Eye Problem started today left eye Primary Care Physician is Stephanie Layton MD. Symptoms include left eye is itchy and red. Has a history of allergies and is sensitive to certain smells. Went to the dentist on Wednesday and he uses a vanilla air mister. It instantly made her eye watery and itchy and then she woke up today and her left eye was very red also. Also has very mild pain around the eye, but denies eye trauma, crusting, sensitivity to light, or changes in vision. Does not wear contacts. Eye does not feel gritty. Onset of symptoms was today unchanged since that time. Denies fever or chills. No known sick contacts. She is drinking plenty of fluids. Evaluation to date: none. Treatment to date: Zatador with only temporary relief, red eye drops, saline eye wash Allergies Allergen Reactions ??? Latex ??? Pcn [Penicillins] Rash ??? Tetracycline Itching ??? Erythromycin ??? Polyurethane [Urethane] Outpatient Medications Marked as Taking for the 08/03/20 encounter (Office Visit) with Provider, [facility] Medication Sig ??? chloramphenicol (CHLOROMYCETIN) 30 mg/ml Take by mouth once daily ??? fluticasone propionate (FLONASE) 50 MCG/ACT nasal spray [place] 2 Sprays into each nostril once daily ??? mometasone (NASONEX) 50 MCG/ACT nasal spray [place] 1 [place] into each nostril 2 times daily ??? olopatadine (PATADAY) 0.2 % ophthalmic solution Instill 1 (one) drop into both eyes once daily Past Medical History: Diagnosis Date ??? Acid reflux ??? Borderline hypertension ??? IBS (irritable bowel syndrome) There is no problem list on file for this patient. Past Surgical History: Procedure Laterality Date ??? Hysterectomy ??? Meniscectomy Left repair Social History Socioeconomic History ??? Marital status: Spouse name: Not on file ??? Number of children: Not on file ??? Years of education: Not on file ??? Highest education level: Not on file Occupational History ??? Not on file Social Needs ??? Financial resource strain: Not on file ??? Food insecurity Worry: Not on file Inability: Not on file ??? Transportation needs Medical: Not on file Non-medical: Not on file Tobacco Use ??? Smoking status: Never Smoker ??? Smokeless tobacco: Never Used Substance and Sexual Activity ??? Alcohol use: Not on file ??? Drug use: Not on file ??? Sexual activity: Not on file Lifestyle ??? Physical activity Days per week: Not on file Minutes per session: Not on file ??? Stress: Not on file Relationships ??? Social connections Talks on phone: Not on file Gets together: Not on file Attends lutheran service: Not on file Active member of club or organization: Not on file Attends meetings of clubs or organizations: Not on file Relationship status: Not on file ??? Intimate partner violence Fear of current or ex partner: Not on file Emotionally abused: Not on file Physically abused: Not on file Forced sexual activity: Not on file Other Topics Concern ??? Not on file Social History Narrative ??? Not on file Medications reviewed. Review of Systems Pertinent items are noted in HPI Constitutional: Negative for fevers, chills. Eyes: Positive for redness and itching to left eye Ears, nose, mouth, and throat: Negative for sore throat, congestion or runny nose Respiratory: Negative for shortness of breath, acute cough Neurological: Negative Objective: BP 142/90 (BP SITE: LEFT ARM, BP POSITION: SITTING, BP CUFF SIZE: 11) Pulse 68 Temp 98.4 ??F (36.9 ??C) (Oral) Resp 16 Ht 1.6 m (5' 3 ) Wt 68 kg (150 lb) SpO2 97% BMI 26.57 kg/m2 Skin: Physical Exam Exam General appearance: alert, cooperative, no distress, oriented to person, place, and time, wellappearing Head: normocephalic, without trauma Eyes: left sclera erythematous with mild watering noted. Right sclera clear. conjunctiva pale bilaterally, EOMI and PERRLA, lids normal. Fluorescein stain performed with no sign of corneal abrasion. Nose: nares open; no septal deviation is noted, nasal mucosa not inflamed Throat: no mucous membrane abnormalities Lungs: breath sounds normal and symmetric; no rales or wheezes Heart: regular rhythm, normal S1 and S2, without murmurs, gallops or rubs Neurologic: mental status normal; alert and oriented X 3 No results found for this or any previous visit (from the past 24 hour(s)). Assessment: Encounter Diagnoses Name Primary? Allergic conjunctivitis of left eye Yes Plan: Discussed with pharmacist the name of prior prescription allergy eye drops. Suggested symptomatic OTC remedies. Take Rx ophthalmic drops as directed Continue eye wash and daily allergy medication as directed. Refrain from touching your eye. Touching or rubbing the eyes can increase risk for infection. Good handwashing is important. Orders Placed This Encounter ??? olopatadine (PATADAY) 0.2 % ophthalmic solution Sig: Instill 1 (one) drop into both eyes once daily Dispense: 2.5 mL Refill: 0 Continue to follow up with Stephanie Layton MD as directed. After Visit Summary reviewed with patient. The patient indicates understanding of these issues and agrees with the plan. Patient discharged to Home .FRANKIE Huggins 08/03/2020 4:02 PM documented in this encounter Plan of Treatment Not on file documented as of this encounter Visit Diagnoses Diagnosis Allergic conjunctivitis of left eye- Primary Other chronic allergic conjunctivitis documented in this encounter Care Teams Mixer Foam Rubber Relationship Specialty Start Date End Date Stephanie Layton MD PCP - General Internal Medicine 08/03/20 documented as of this encounter
--- OUTSIDE RECORDS SUMMARY | 2024-04-25 11:21 | XMS_ITS | Encounter Summary ---
Author Organization [facility] Address [address] [place] [address] Care Team Providers Care Music Internship Name Role Phone Unavailable Primary Care Provider Unavailabl e Reason for Visit * Reason Onset Date Comments Reminder Call 06/16/2018 Encounter Details Date Type Department Care Team (Late st Contact Info) Description 06/16/2018 Telephone [facility] [facility] AT [address] [id number] Damion Coronado APRN-CNP [address] [place] [phone] Reminder Call Social History Tobacco Use Types Packs/Day Years Used Date Smoking Tobacco: Never Smokeless Tobacco: Never Sex and Gender Information Value Date Recorded Sex Assigned at Not on file Gender Identity Not on file Sexual Orientation Not on file documented as of this encounter Miscellaneous Notes * Telephone Encounter - Damion Coronado APRN-CNP - 06/16/2018 10:37 AM DATA MANAGEMENT ENGINEER Lab culture: E coli positive and Sensitive to Cipro, the chosen abx. SHIPYARD PAINTING SUPERVISOR called and spoke to pt who stated she was doing much better. SHIPYARD PAINTING SUPERVISOR gave update and discussed the result and tx, that is working well--per pt. No other questions from pt. MANAGEMENT ENGINEER documented in this encounter Plan of Treatment Not on file documented as of this encounter Visit Diagnoses Not on filedocumented in this encounter
--- OUTSIDE RECORDS SUMMARY | 2024-04-25 11:21 | XMS_ITS | Encounter Summary ---
Author Organization [facility] Address [address] [place] [address] Care Team Providers Care District Manager Postal Service Name Role Phone Stephanie Layton MD Primary Care Provider [phone] Encounter Details Date Type Department Care Team [...] on filedocumented in this encounter Care Teams District Manager Postal Service Relationship Specialty Start Date End Date Stephanie Layton MD PCP - General Internal Medicine 08/03/20 documented as of this encounter
--- OUTSIDE RECORDS SUMMARY | 2024-04-25 11:21 | XMS_ITS | Encounter Summary ---
Author Organization [facility] Address [address] [place] [address] Care Team Providers Care Fleet Maintenance Manager Name Role Phone Stephanie Layton MD Primary Care Provider [phone] Encounter Details Date Type Department Care Team (Late st Contact Info) Description 08/05/2020 Orders Only [facility] - COVID Vax [address] [place] [address] [phone] Manjit Aleman MD [address] [address] [place] [phone] Need for vaccination Social History Tobacco Use Types Packs/Day Years [...] as of this encounter Visit Diagnoses Diagnosis Need for vaccination Need for prophylactic vaccination and inoculation against unspecified single disease documented in this encounter Care Teams Fleet Maintenance Manager Relationship Specialty Start Date End Date Stephanie Layton MD PCP - General Internal Medicine 08/03/20 documented as of this encounter
--- OUTSIDE RECORDS SUMMARY | 2024-04-25 11:21 | XMS_ITS | Encounter Summary ---
Author Organization [facility] Address [address] [place] [address] Care Team Providers Care Chair And Couch Maker Name Role Phone Unavailable Primary Care Provider Unavailabl e Reason for Visit * Reason Onset Date Comments Follow-up 06/11/2018 Encounter Details Date Type Department Care Team (Late st Contact Info) Description 06/11/2018 Telephone [facility] [address] [place] [address] Brian Smith, CATARACT LENS GENERATOR-FUND RAISER [address] [place] [address] Follow-up Social History Tobacco Use Types Packs/Day Years Used Date Smoking Tobacco: Never Smokeless Tobacco: Never Sex and Gender Information Value Date Recorded Sex Assigned at Not on file Gender Identity Not on file Sexual Orientation Not on file documented as of this encounter Plan of Treatment Not on file documented as of this encounter Visit Diagnoses Not on filedocumented in this encounter
--- OUTSIDE RECORDS SUMMARY | 2024-04-25 11:21 | XMS_ITS | Encounter Summary ---
Author Organization [facility] Address [address] [place] [address] Care Team Providers Care Intensive Care Ambulance Paramedic Name Role Phone Stephanie Layton MD Primary Care Provider [phone] Encounter Details Date Type Department Care Team [...] on filedocumented in this encounter Care Teams Intensive Care Ambulance Paramedic Relationship Specialty Start Date End Date Stephanie Layton MD PCP - General Internal Medicine 08/03/20 documented as of this encounter
--- OUTSIDE RECORDS SUMMARY | 2024-04-25 11:21 | XMS_ITS | Encounter Summary ---
Author Organization [facility] Address [address] [place] [address] Care Team Providers Care Neon Electrician Name Role Phone Unavailable Primary Care Provider Unavailabl e Reason for Visit * Reason Onset Date Comments Patient Requested Call 06/09/2018 Encounter Details Date Type Department Care Team (Late st Contact Info) Description 06/09/2018 Telephone [facility] AT [address] [phone] Provider, Theodore Hsieh [place] Patient Requested Call Social History Tobacco Use Types Packs/Day Years Used Date Smoking Tobacco: Never Smokeless Tobacco: Never Sex and Gender Information Value Date Recorded Sex Assigned at Not on file Gender Identity Not on file Sexual Orientation Not on file documented as of this encounter Miscellaneous Notes * Telephone Encounter - Connor Chery APRN-CNP - 06/09/2018 5:54 PM ELECTRIC SCREW DRIVER OPERATOR Checked with pharmacy and per Meño the pharmacist they have checked with pt 's insurance and coupon card and they can not get any allergy eye drops below $116. Pt does not want to pay that. Recommend otc allergy eye drops and antihistamine such as Claritin or zyrtec. Pt agrees to plan TRIC SCREW DRIVER OPERATOR * Telephone Encounter - Claudia Matson - 06/09/2018 5:26 PM CST Who is calling? Self What is the reason for call? Patient would like to change one of her three prescriptions because itis really expensive. Expected Response from the Clinic? Please call her to discuss. Thank you. TRIC SCREW DRIVER OPERATOR documented in this encounter Plan of Treatment Not on file documented as of this encounter Visit Diagnoses Not on filedocumented in this encounter
--- OUTSIDE RECORDS SUMMARY | 2024-04-25 11:22 | XMS_ITS | Encounter Summary ---
Author Organization [facility] Address [address] [place] [address] Care Team Providers Care Trade Mark Attorney Name Role Phone Unavailable Primary Care Provider Unavailabl e Reason for Visit * Reason Comments Eye Problem left eye, allergies dry and itchy Encounter Details Date Type Department Care Team (Late st Contact Info) Description 01/18/2017 9:00 AM CDT Office Visit [facility] AT [address] [phone] Provider, Theodore Exp [place] Allergic conjunctivitis, bilateral (Primary Dx) Social History Tobacco Use Types Packs/Day Years Used Date Smoking Tobacco: Never Smokeless Tobacco: Never Sex and Gender Information Value Date Recorded Sex Assigned at Not on file Gender Identity Not on file Sexual Orientation Not on file documented as of this encounter Last Filed Vital Signs Vital Sign Reading Time Taken Comments Blood Pressure 124/86 01/18/2017 9:16 AM CDT Pulse 77 01/18/2017 9:16 AM CDT Temperature 36.4 ??C (97.6 ??F) 01/18/2017 9:16 AM CD T Respiratory Rate 16 01/18/2017 9:16 AM CDT Oxygen Saturation 98% 01/18/2017 9:16 AM CDT Inhaled Oxygen Concentration - - Weight 68.9 kg (152 lb) 01/18/2017 9:16 AM CDT Height 158.8 cm (5' 2.5 ) 01/18/2017 9:16 AM CDT Body Mass Index 27.36 01/18/2017 9:16 AM CDT documented in this encounter Patient Instructions * Patient Instructions* Brian Smith APRN-CNP - 01/18/2017 9:27 AM CDT Good handwashing Continue regular antihistamine routine Avoid wiping at the eyes to avoid irritation. documented in this encounter Progress Notes * Brian Smith APRN-CNP - 01/18/2017 9:28 AM CDT Subjective: Erin An is a 66 y.o. female who is presents to the clinic today for Chief Complaint Patient presents with ??? Eye Problem left eye, allergies dry and itchy . her Primary Care Physician is No primary care provider on file.. She has noticed itching, watering in the bilateral eye for has a long standing history of allergic conjunctivitis and the OTC is no longer working Onset was gradual. Patient denies pain, blurred vision, foreign body sensation, visual field deficit, discharge, photophobia. No past medical history on file. No past surgical history on file. No family history on file. Social History Social History ??? Marital status: Spouse name: N/A ??? Number of children: N/A ??? Years of education: N/A Occupational History ??? Not on file. Social History Main Topics ??? Smoking status: Never Smoker ??? Smokeless tobacco: Never Used ??? Alcohol use Not on file ??? Drug use: Not on file ??? Sexual activity: Not on file Other Topics Concern ??? Not on file Social History Narrative ??? No narrative on file Allergies Allergen Reactions ??? Latex ??? Pcn [Penicillins] Rash ??? Erythromycin ??? Polyurethane [Urethane] Current Outpatient Prescriptions Medication Sig Dispense Refill ??? fluticasone propionate (FLONASE) 50 MCG/ACT nasal spray [facility] 2 Sprays into each nostril once daily ??? mometasone (NASONEX) 50 MCG/ACT nasal spray [facility] 1 Duke into each nostril 2 times daily ??? olopatadine (PATADAY) 0.2 % ophthalmic solution Instill 1 Drop into both eyes once daily 2.5 mL0 No current facility-administered medications for this visit. Review of Systems Pertinent items are noted in HPI Objective: BP 124/86 (BP SITE: LEFT ARM, BP POSITION: SITTING, BP CUFF SIZE: Adult) Pulse 77 Temp 97.6 ??F (Oral) Resp 16 Ht 1.588 m (5' 2.5 ) Wt 68.9 kg (152 lb) SpO2 98% BMI 27.36 kg/m2 Exam General appearance: alert, cooperative, no distress Eyes: Pale conjunctiva. Watering noted with redness and excoriation to outer rim of eye from wiping Lungs: breath sounds normal and symmetric; no rales or wheezes Heart: regular rhythm, normal S1 and S2, without murmurs, gallops or rubs Assessment: Encounter Diagnosis Name Primary? Allergic conjunctivitis, bilateral Yes Plan: 1. Ophthalmic drops per orders, Antihistamines per orders, Good handwasing 2. Patient instructions: Risks and side effects of medications were discussed. 3. Pt advised to read written information provided by the pharmacist: yes 4. Follow-up as needed. 5. See below orders for referral to PCP if none on file. Orders Placed This Encounter ??? olopatadine (PATADAY) 0.2 % ophthalmic solution Sig: Instill 1 Drop into both eyes once daily Dispense: 2.5 mL Refill: 0 No results found for this or any previous visit (from the past 24 hour(s)). documented in this encounter Plan of Treatment Not on file documented as of this encounter Visit Diagnoses Diagnosis Allergic conjunctivitis, bilateral- Primary Other chronic allergic conjunctivitis documented in this encounter
--- OUTSIDE RECORDS SUMMARY | 2024-04-25 11:22 | XMS_ITS | Encounter Summary ---
Author Organization [facility] Address [address] [place] [address] Care Team Providers Care Microstrategy Architect Developer Name Role Phone Unavailable Primary Care Provider Unavailabl e Reason for Visit * Reason Onset Date Comments Follow-up 01/20/2017 Encounter Details Date Type Department Care Team (Late st Contact Info) Description 01/20/2017 Telephone [facility] [employer] [facility] [address] [phone] Dian Mark Follow-up Social History Tobacco Use Types Packs/Day [...]
--- OUTSIDE RECORDS SUMMARY | 2024-04-25 11:22 | XMS_ITS | Encounter Summary ---
Author Organization [facility] Address [address] [place] [address] Care Team Providers Care Reception Agent Name Role Phone Unavailable Primary Care Provider Unavailabl e Reason for Visit * Reason Comments Bladder infection Encounter Details Date Type Department Care Team (Late st Contact Info) Description 06/09/2018 10:40 AM BRASS FINISHER Office Visit [facility] AT [address] [phone] Provider, Theodore Hsieh [place] Acute cystitis with hematuria (Primary Dx); Allergic conjunctivitis of both eyes Social History Tobacco Use Types Packs/Day Years Used Date Smoking Tobacco: Never Smokeless Tobacco: Never Sex and Gender Information Value Date Recorded Sex Assigned at Not on file Gender Identity Not on file Sexual Orientation Not on file documented as of this encounter Last Filed Vital Signs Vital Sign Reading Time Taken Comments Blood Pressure 138/86 06/09/2018 10:40 AM BRASS FINISHER Pulse 61 06/09/2018 10:40 AM BRASS FINISHER Temperature 36.9 ??C (98.4 ??F) 06/09/2018 10:[address] Respiratory Rate 16 06/09/2018 10:40 AM BRASS FINISHER Oxygen Saturation 99% 06/09/2018 10:40 AM BRASS FINISHER Inhaled Oxygen Concentration - - Weight 64.4 kg (142 lb) 06/09/2018 10:40 AM BRASS FINISHER Height 158.8 cm (5' 2.5 ) 06/09/2018 10:40 AM CS T Body Mass Index 25.56 06/09/2018 10:40 AM BRASS FINISHER documented in this encounter Patient Instructions * Patient Instructions* Connor Chery APRN-CNP - 06/09/2018 10:55 AM BRASS FINISHER Urinary Tract Infection in Older Adults CAUSE ANALYST: A urinary tract infection (UTI) is caused by bacteria that get inside your urinary tract. Your urinary tract includes your kidneys, ureters, bladder, and urethra. Urine is made in your kidneys, and it flows from the ureters to the bladder. Urine leaves the bladder through the urethra. A UTI is morecommon in your lower urinary tract, which includes your bladder and urethra. Common signs and symptoms include the following: ?? Fever and chills ?? Pain or burning when you urinate ?? Urine that smells bad or looks cloudy, or blood in your urine ?? Urinating more often or waking from sleep to urinate ?? Sudden, strong need to urinate ?? Pain or pressure in your lower abdomen ?? Leaking urine ?? Confusion or agitation ?? Fatigue, shakiness, and weakness Seek care immediately if: ?? You are urinating very little or not at all. ?? You are vomiting. ?? You have a high fever with shaking chills. ?? You have side or back pain that gets worse. Contact your healthcare provider if: ?? You have a fever. ?? You are a woman and you have increased white or yellow discharge from your vagina. ?? You do not feel better after 2 days of taking antibiotics. ?? You have questions or concerns about your condition or care. Treatment: Medicines treat the bacterial infection or decrease pain and burning when you urinate. You may also need medicines to decrease the urge to urinate often. Your healthcare provider may recommend cranberry juice or cranberry supplements to help decrease your symptoms. Self-care: ?? Urinate when you feel the urge. Do not hold your urine because bacteria can grow in the bladder if urine stays in the bladder too long. It may be helpful to urinate at least every 3 to 4 hours. ?? Drink liquids as directed. Liquids can help flush bacteria from your urinary tract. Ask how muchliquid to drink each day and which liquids are best for you. You may need to drink more liquids than usual to help flush out the bacteria. Do not drink alcohol, caffeine, and citrus juices. These canirritate your bladder and increase your symptoms. ?? Apply heat on your abdomen for 20 to 30 minutes every 2 hours for as many days as directed. Heathelps decrease discomfort and pressure in your bladder. Prevent a UTI: ?? Women should wipe front to back after urinating or having a bowel movement. This may prevent germs from getting into the urinary tract. ?? Urinate after you have sex to flush away bacteria that can enter your urinary tract during sex. ?? Wear cotton underwear and clothes that fit loose. Tight pants and nylon underwear can trap moisture and cause bacteria to grow. Follow up with your healthcare provider as directed: Write down your questions so you remember to ask them during your visits. ?? Copyright V[employer] 2018 Information is for End User's use only and may not be sold, redistributed or otherwise used for commercial purposes. All illustrations and images included in CareNotes?? are the copyrighted property of [employer] or [employer] The above information is an kitchen aide only. It is not intended as medical advice for individual conditions or treatments. Talk to your doctor, nurse or pharmacist before following any medical regimen to see if it is safe and effective for you. S FINISHER documented in this encounter Progress Notes * Connor Chery APRN-CNP - 06/09/2018 10:54 AM CST Subjective: Erin An is a 68 y.o. female who complains of burning with urination, frequency for 0 days. Patient complains also of having some itchy watery eyes for a few days. Pt states she used some pink eye eye drops and that did not seem to help. Patient denies fever, eye trauma, light sensitivity,or visual changes. There is not any concern of sexual abuse. There is not a history of trauma to the genital area. Patient does not have a history of recurrent UTI. Patient does not have a history ofpyelonephritis. Patients PCP is No primary care provider on file. Past Medical History: Diagnosis Date ??? Acid reflux ??? IBS (irritable bowel syndrome) No family history on file. Current Outpatient Prescriptions Medication Sig Dispense Refill ??? fluticasone propionate (FLONASE) 50 MCG/ACT nasal spray [place]open[place] 2 Sprays into each nostril once daily ??? mometasone (NASONEX) 50 MCG/ACT nasal spray Lopeno 1 Lopeno into each nostril 2 times daily ??? nitrofurantoin monohyd macro crystals (MACROBID) 100 MG capsule Take 1 capsule by mouth 2 timesdaily with morning and evening meal for 5 days 10 capsule 0 ??? olopatadine (PATADAY) 0.2 % ophthalmic solution Instill 1 drop into both eyes once daily 2.5 mL0 No current facility-administered medications for this visit. Allergies Allergen Reactions ??? Latex ??? Pcn [Penicillins] Rash ??? Tetracycline Itching ??? Erythromycin ??? Polyurethane [Urethane] Social History Social History ??? Marital status: [...] ??? Not on file Social History Narrative Review of Systems Pertinent items are noted in HPI Constitutional: Negative Eyes: Positive for itchy watery eyes, Negative for eye pain bilaterally, trauma, light sensitivity,or contacts. Cardiovascular: Negative Gastrointestinal: Negative Genitourinary:Positive for burning with urination, frequency for 0 days. Started today Hematologic/lymphatic: Negative Musculoskeletal:Negative Neurological: Negative Objective: BP 138/86 (BP SITE: LEFT ARM, BP POSITION: SITTING, BP CUFF SIZE: 11) Pulse 61 Temp 98.4 ??F (36.9 ??C) (Oral) Resp 16 Ht 1.588 m (5' 2.5 ) Wt 64.4 kg (142 lb) SpO2 99% BMI 25.56 kg/m2 Exam: General appearance: alert, cooperative, no distress, oriented to person, place, and time, well appearing Head: normocephalic, without trauma Eyes: sclera and conjunctiva clear, EOMI and PERRLA, lids normal, no drainage noted Back: no CVA tenderness Lungs: breath sounds normal and symmetric; no rales or wheezes Heart: regular rhythm, normal S1 and S2, without murmurs, gallops or rubs Abdomen: soft without mass, non-tender, with normal bowel sounds Neurologic: mental status normal; alert and oriented X 3; Assessment: Encounter Diagnoses Name Primary? Acute cystitis with hematuria Yes ??? Allergic conjunctivitis of both eyes Plan: 1. Maintain adequate hydration 2. Follow up if symptoms not improving, and prn. 3. Referral placed for PCP if none on file If your eye symptoms worsen or persist follow up with PCP or eye doctor Drink plenty of water through out the day Urinate when you feel the urge. Do not hold your urine. Urinate as soon as you feel you have to. Cranberry juice as been shown to promote healing, use at your discretion. Make sure to always wipe from front to back after urinating. If you are sexually active make sure to urinate Before AND After sex to help prevent bladder infections. Avoid intercourse until your symptoms are resolved for one week. Do not drink alcohol, caffeine, and citrus juices. These can irritate your bladder and increase your symptoms. Your symptoms should begin to improve within a day of starting antibiotics. But you should finish all the antibiotic pills you get. Otherwise your infection might come back. Seek care (go to Urgent Care or ER) immediately if: ?? You are urinating very little or not at all. ?? You are vomiting. ?? You have a high fever with shaking chills. ?? You have side or back pain that gets worse. ?? Seek medical attention if your symptoms worsen, or do not go away after treatment. Contact your primary care doctor or ALUMINUM POURER if: ?? You have a fever. ?? You have white or yellow discharge from your vagina. ?? You do not feel better after 2 days of taking antibiotics. ?? You have questions or concerns about your condition or care Urine culture sent to [facility] per pt request. Orders Placed This Encounter ??? CULTURE URINE ??? URINALYSIS AUTO - POINT OF CARE (AMB) STL ??? nitrofurantoin monohyd macro crystals (MACROBID) 100 MG capsule Sig: Take 1 capsule by mouth 2 times daily with morning and evening meal for 5 days Dispense: 10 capsule Refill: 0 ??? olopatadine (PATADAY) 0.2 % ophthalmic solution Sig: Instill 1 drop into both eyes once daily Dispense: 2.5 mL Refill: 0 Recent Results (from the past 24 hour(s)) URINALYSIS AUTO - POINT OF CARE (AMB) STL Collection Time: 06/09/18 10:51 AM Result Value Ref Range Clarity UA POCT cloudy Color UA POCT yellow Leukocyte UA 125+ Negative Nitrite UA POCT negative Negative Urobilinogen UA 0.2 0.1 - 1.0 Protein UA POCT 15+ Negative pH UA 6.0 5.0 - 8.0 pH units Blood UA 50 Negative Specific [place] UA POCT 1.015 1.002 - 1.030 Ketone UA negative Negative Bilirubin UA POCT negative Negative Glucose UA negative Negative Expiration Date [id number] Lot # [id number] QC Verified Yes Yes S FINISHER documented in this encounter Plan of Treatment Not on file documented as of this encounter Procedures Procedure Name Priority Date/Time Associated Diagnosis Comments CULTURE URINE Routine 06/09/2018 10:59 AM BRASS FINISHER Acute cystitis with hematuria URINALYSIS AUTO - POINT OF CARE (AMB) STL Routine 06/09/2018 10:51 AM BRASS FINISHER Acute cystitis with hematuria documented in this encounter Results * (ABNORMAL) CULTURE URINE (06/09/2018 10:59 AM BRASS FINISHER) Culture (A) [facility] Comment: ??CULTURE, URINE, ROUTINE ?MICRO NUMBER: ?[id number] ??TEST STATUS: ? FINAL ??SPECIMEN SOURCE: ?? [...] cefuroxime, cephalexin ?and loracarbef. Test Performed at: [facility] ??[id number] EDMODN HIDALGO MD Urine URINE SPECIMEN OBTAINED BY CLEAN CATCH PROCEDURE / Unknown 06/09/2018 10:59 AM BRASS FINISHER 06/11/2018 12:42 AM BRASS FINISHER [facility] - MICROBIOLOG Y ORDERABLES [address] [address] * (ABNORMAL) URINALYSIS AUTO - POINT OF CARE (AMB) STL (06/09/2018 10:51 AM BRASS FINISHER) Clarity UA POCT cloudy Color UA POCT yellow Leukocyte UA 125+ Negative Nitrite UA POCT negative Negative Urobilinogen UA 0.2 0.1 - 1.0 Protein UA POCT 15+ Negative pH UA 6.0 5.0 - 8.0 pH units Blood UA 50 Negative Specific [place] UA POCT 1.015 1.002 - 1.030 Ketone UA negative Negative Bilirubin UA POCT negative Negative Glucose UA negative Negative Expiration Date [id number] Lot # [id number] QC Verified Yes Yes Urine URINE / Unknown 06/09/2018 1 0:51 AM BRASS FINISHER Connor [facility] [facility] - POINT OF CA RE ORDERABLES documented in this encounter Visit Diagnoses Diagnosis Acute cystitis with hematuria- Primary Acute cystitis Allergic conjunctivitis of both eyes Other chronic allergic conjunctivitis documented in this encounter
--- OUTSIDE RECORDS SUMMARY | 2024-04-25 11:22 | XMS_ITS | Continuity of Care Document ---
Author Organization [facility] Address [address] [facility] [address] [place] [address] Phone Care Team Providers Care Human Resources Mgr Name Role Phone Sosa Rogers Unavailable Unavailable Advance Directives Directive Yes / No Effective Date File Name No Information Encounters Encounter Description Practice Location Reason(s) For Visit Diagnoses Date Provider Providers Copied on Encounter [facility], [address], [place], [place], [id number], [place] tel:[phone] [facility] No Information [address] , [address], [place], [address], [place]. tel:[phone] Family History Family Member Type Diagnosis Age At Onset No Information Payers Payer name Insurance type Covered green party ID Authoriza tion(s) No Information Social History Type Description Quantity Date Captured Comments Sex Female Smoking Status No Information Chief Complaint And Reason For Visit No Information Reason For Referral Reason For Referral No Information History Of Present Illness Encounter Date Complaint History Of Prese nt Illness No Information Functional Status Date Functional Assessmen t No Information Instructions Date Instruction Additional Infor mation No Information Assessments Type Assessment Date No Information Patient Care Teams Name Effective Dates (start - stop) Status Members No Information
--- OUTSIDE RECORDS SUMMARY | 2024-04-25 14:28 | XMS_ITS | Encounter Summary ---
Author Organization [facility] Address [address] [place] [address] Care Team Providers Care Incident Handler Name Role Phone Unavailable Primary Care Provider Unavailabl e Reason for Visit * Reason Comments Bladder infection Encounter Details Date Type Department Care Team (Late st Contact Info) Description 06/09/2018 10:40 AM DISCHARGE PLANNER Office Visit [facility] AT [address] [phone] Provider, Theodore Hsieh [place] Acute cystitis with hematuria (Primary Dx); Allergic [...] Comments Blood Pressure 138/86 06/09/2018 10:40 AM DISCHARGE PLANNER Pulse 61 06/09/2018 10:40 AM DISCHARGE PLANNER Temperature 36.9 ??C (98.4 ??F) 06/09/2018 10:[address] Respiratory Rate 16 06/09/2018 10:40 AM DISCHARGE PLANNER Oxygen Saturation 99% 06/09/2018 10:40 AM DISCHARGE PLANNER Inhaled Oxygen Concentration - - Weight 64.4 kg (142 lb) 06/09/2018 10:40 AM DISCHARGE PLANNER Height 158.8 cm (5' 2.5 ) 06/09/2018 10:40 AM CS T Body Mass Index 25.56 06/09/2018 10:40 AM DISCHARGE PLANNER documented in this encounter Patient Instructions * Patient Instructions* Connor Chery APRN-CNP - 06/09/2018 10:55 AM DISCHARGE PLANNER Urinary Tract Infection in Older Adults TEACHER ADULT EDUCATION: A urinary tract infection (UTI) is caused [...] ask them during your visits. ?? Copyright [employer] 2018 Information is for End User's use only and may not be sold, redistributed or otherwise used for commercial purposes. All illustrations and images included in CareNotes?? are the copyrighted property of [employer], [employer]. or Droplet The above information is an political aide only. It is not intended as medical advice for individual conditions or treatments. Talk to your doctor, nurse or pharmacist before following any medical regimen to see if it is safe and effective for you. HARGE PLANNER documented in this encounter Progress Notes * [...] fluticasone propionate (FLONASE) 50 MCG/ACT nasal spray [place] 2 Sprays into each nostril once daily ??? mometasone (NASONEX) 50 MCG/ACT nasal spray [place] 1 [place] into each nostril 2 times daily ??? [...] treatment. Contact your primary care doctor or ROLLING MACHINE TENDER if: ?? You have a fever. ?? You have white or yellow discharge from your vagina. ?? You do not feel better after 2 days of taking antibiotics. ?? You have questions or concerns about your condition or care Urine culture sent to [facility] per pt request. Orders Placed This Encounter [...] pH units Blood UA 50 Negative Specific [place] UA POCT 1.015 1.002 - 1.030 Ketone UA negative Negative Bilirubin UA POCT negative Negative Glucose UA negative Negative Expiration Date [id number] Lot # [id number] QC Verified Yes Yes HARGE PLANNER documented in this encounter Plan of Treatment Not on file documented as of this encounter Procedures Procedure Name Priority Date/Time Associated Diagnosis Comments CULTURE URINE Routine 06/09/2018 10:59 AM DISCHARGE PLANNER Acute cystitis with hematuria URINALYSIS AUTO - POINT OF CARE (AMB) STL Routine 06/09/2018 10:51 AM DISCHARGE PLANNER Acute cystitis with hematuria documented in this encounter Results * (ABNORMAL) CULTURE URINE (06/09/2018 10:59 AM DISCHARGE PLANNER) Culture (A) QUEST Comment: ??CULTURE, URINE, ROUTINE ?MICRO NUMBER: ?[id number] ??TEST STATUS: ? FINAL ??SPECIMEN SOURCE: ?? [...] cefuroxime, cephalexin ?and loracarbef. Test Performed at: [facility] ??[id number] EDMOND HIDALGO MD Urine URINE SPECIMEN OBTAINED BY CLEAN CATCH PROCEDURE / Unknown 06/09/2018 10:59 AM DISCHARGE PLANNER 06/11/2018 12:42 AM DISCHARGE PLANNER Connor DAVID LAB - MICROBIOLOG Y ORDERABLES [address] [address] * (ABNORMAL) URINALYSIS AUTO - POINT OF CARE (AMB) STL (06/09/2018 10:51 AM DISCHARGE PLANNER) Clarity UA POCT cloudy Color UA POCT yellow Leukocyte UA 125+ Negative Nitrite UA POCT negative Negative Urobilinogen UA 0.2 0.1 - 1.0 Protein UA POCT 15+ Negative pH UA 6.0 5.0 - 8.0 pH units Blood UA 50 Negative Specific [place] UA POCT 1.015 1.002 - 1.030 Ketone UA negative Negative Bilirubin UA POCT negative Negative Glucose UA negative Negative Expiration Date [id number] Lot # [id number] QC Verified Yes Yes Urine URINE / Unknown 06/09/2018 1 0:51 AM DISCHARGE PLANNER Connor PACHECOPLASTIC WELDING MACHINE OPERATOR LAB - POINT OF CA RE ORDERABLES documented in this encounter Visit Diagnoses Diagnosis Acute cystitis with hematuria- Primary Acute cystitis Allergic conjunctivitis of both eyes Other chronic allergic conjunctivitis documented in this encounter
--- OUTSIDE RECORDS SUMMARY | 2024-04-25 14:28 | XMS_ITS | Patient Health Summary ---
Author Organization [facility] Address [address] [place] [address] Care Team Providers Care Beadworker Name Role Phone Stephanie Layton MD Primary Care Provider [phone] Note from [facility],non-owned Affiliates and Associated Physician Practices is amultiple site organization consisting of ambulatory clinics and hospital sitesin [place], [place], [place] and [place]. This disclosure is being madepursuant to the Care Everywhere program and may not contain all information available regarding this patient. Last updated 18.[facility] Allergies * Erythromycin * Latex * Penicillins(Rash) -Medium Criticality * Urethane * Tetracycline(Itching) Medications * Be aware that medications may not be up to date on this document. Alwaysverify current medications with the patient. * fluticasone propionate (FLONASE) 50 MCG/ACT nasal spray [place] 2 Sprays into each nostril once daily * mometasone (NASONEX) 50 MCG/ACT nasal spray [place] 1 [place] into each nostril 2 times daily * [...] * (ABNORMAL) CULTURE URINE (06/09/2018 10:59 AM SOIL FERTILITY EXTENSION SPECIALIST) Culture (A) QUEST Comment: ??CULTURE, URINE, ROUTINE ?MICRO NUMBER: ?[id number] ??TEST STATUS: ? FINAL ??SPECIMEN SOURCE: ?? [...] cefuroxime, cephalexin ?and loracarbef. Test Performed at: [facility] ??[id number] EDMOND HIDALGO MD Urine URINE SPECIMEN OBTAINED BY CLEAN CATCH PROCEDURE / Unknown 06/09/2018 10:59 AM SOIL FERTILITY EXTENSION SPECIALIST 06/11/2018 12:42 AM SOIL FERTILITY EXTENSION SPECIALIST Connor Chery APRN-REGULATORY AFFAIRS ASSISTANT LAB - MICROBIOLOG Y ORDERABLES [address] [address] * (ABNORMAL) URINALYSIS AUTO - POINT OF CARE (AMB) STL (06/09/2018 10:51 AM SOIL FERTILITY EXTENSION SPECIALIST) Clarity UA POCT cloudy Color UA POCT yellow Leukocyte UA 125+ Negative Nitrite UA POCT negative Negative Urobilinogen UA 0.2 0.1 - 1.0 Protein UA POCT 15+ Negative pH UA 6.0 5.0 - 8.0 pH units Blood UA 50 Negative Specific [place] UA POCT 1.015 1.002 - 1.030 Ketone UA negative Negative Bilirubin UA POCT negative Negative Glucose UA negative Negative Expiration Date [id number] Lot # [id number] QC Verified Yes Yes Urine URINE / Unknown 06/09/2018 1 0:51 AM SOIL FERTILITY EXTENSION SPECIALIST Connor PACHECOREGULATORY AFFAIRS ASSISTANT LAB - POINT OF CA RE ORDERABLES Care Teams Beadworker Relationship Specialty Start Date End Date Stephanie Layton MD PCP - General Internal Medicine 08/03/20
--- OUTSIDE RECORDS SUMMARY | 2024-04-25 14:28 | XMS_ITS | Encounter Summary ---
Author Organization [facility] Address [address] [place] [address] Care Team Providers Care Human Resources Hr Generalist Name Role Phone Unavailable Primary Care Provider Unavailabl e Reason for Visit * Reason Onset Date Comments Medication Issue 06/11/2018 Patient Requested Call 06/11/2018 Update 06/11/2018 Medication Request 06/11/2018 Encounter Details Date Type Department Care Team (Late st Contact Info) Description 06/11/2018 Telephone [facility] AT [address] [phone] Provider, Theodore Hsieh [place] Medication Issue; Patient Requested Call; Update; Medication [...] Brian Smith APRN-CNP - 06/11/2018 3:32 PM LIGHT TECHNICIAN Pt states she is not tolerated the medication well. We are going to switch her to Cipro. See note in chart. Pt VU T TECHNICIAN * Telephone Encounter - Zoraida Dupont - 06/11/2018 2:42 PM CST Who is calling? self What is the reason for call? Calling to update the DOUGH MIXER. Pt was seen on 06/09/18 and Dx [...] Call back, etc..) Please advise Pt at [phone] (H) T TECHNICIAN documented in this encounter Plan of Treatment Not on file documented as of this encounter Visit Diagnoses Not on filedocumented in this encounter
--- OUTSIDE RECORDS SUMMARY | 2024-04-25 14:28 | XMS_ITS | Clinical Summary ---
Author Organization [facility] Address [address] [place] [address] Care Team Providers Care Customer Solutions Architect Name Role Phone Stephanie Layton MD Primary Care Provider [phone] [facility] Affiliates and Associated Physician Practices is amultiple site organization consisting of ambulatory clinics and hospital sitesin [place], [place], [place] and [place]. This disclosure is being madepursuant to the Care Everywhere program and may not contain all information available regarding this patient. Last updated 18.[facility] Allergies Active Allergy Reactions Criticality Noted Date Comments Erythromycin 01/18/2017 Latex 01/18/2017 Penicillins Rash Medium 01/18/2017 Urethane 01/18/2017 Tetracycline Itching 06/09/2018 Medications * Be aware that medications may not be up to date on this document. Alwaysverify current medications with the patient. Medication Sig Dispensed Refills Start Date End Date Status fluticasone propionate (FLONASE) 50 MCG/ACT nasal spray [place] 2 Sprays into each nostril once daily Active mometasone (NASONEX) 50 MCG/ACT nasal spray [place] 1 [place] into each nostril 2 times daily Active [...] age to complete this topic Care Teams Customer Solutions Architect Relationship Specialty Start Date End Date Stephanie Layton MD PCP - General Internal Medicine 08/03/20
--- OUTSIDE RECORDS SUMMARY | 2024-04-25 14:28 | XMS_ITS | Encounter Summary ---
Author Organization [facility] Address [address] [place] [place] [address] Care Team Providers Care Child Care Attendant Name Role Phone Stephanie Layton MD Primary Care Provider [phone] Encounter Details Date Type Department Care Team (Late st Contact Info) Description 08/05/2020 Orders Only [facility] - COVID [facility] [address] [place] [phone] Manjit Aleman MD [address] [place] [address] Need for vaccination Social History Tobacco [...] disease documented in this encounter Care Teams Child Care Attendant Relationship Specialty Start Date End Date Stephanie Layton MD PCP - General Internal Medicine 08/03/20 documented as of this encounter
--- OUTSIDE RECORDS SUMMARY | 2024-04-25 14:28 | XMS_ITS | Encounter Summary ---
Author Organization [facility] Address [address] [place] [address] Care Team Providers Care Tailing Hand Name Role Phone Unavailable Primary Care Provider Unavailabl e Reason for Visit * Reason Onset Date Comments Reminder Call 06/16/2018 Encounter Details Date Type Department Care Team (Late st Contact Info) Description 06/16/[address] [facility] [facility] AT [address] [phone] Damion Coronado APRN-CNP [address] [place] [phone] Reminder Call Social History Tobacco Use Types Packs/Day Years Used Date Smoking Tobacco: Never Smokeless Tobacco: Never Sex and Gender Information Value Date Recorded Sex Assigned at Not on file Gender Identity Not on file Sexual Orientation Not on file documented as of this encounter Miscellaneous Notes * Telephone Encounter - Damion Coronado APRN-CNP - 06/16/2018 10:37 AM [employer] GOODS PRESS HAND Lab culture: E coli positive and Sensitive to Cipro, the chosen abx. WELDER REPAIR called and spoke to pt who stated she was doing much better. WELDER REPAIR gave update and discussed the result and tx, that is working well--per pt. No other questions from pt. GOODS PRESS HAND documented in this encounter Plan of Treatment Not on file documented as of this encounter Visit Diagnoses Not on filedocumented in this encounter
--- OUTSIDE RECORDS SUMMARY | 2024-04-25 14:28 | XMS_ITS | Encounter Summary ---
Author Organization [facility] Address [address] [place] [address] Care Team Providers Care College Archivist Name Role Phone Unavailable Primary Care Provider Unavailabl e Reason for Visit * Reason Comments Eye Problem left eye, allergies dry and itchy Encounter Details Date Type Department Care Team (Late st Contact Info) Description 01/18/2017 9:00 AM CDT Office Visit [facility] AT [address] [phone] Provider, Theodore Exp [place] Allergic conjunctivitis, bilateral (Primary Dx) Social History [...] fluticasone propionate (FLONASE) 50 MCG/ACT nasal spray [place] 2 Sprays into each nostril once daily ??? mometasone (NASONEX) 50 MCG/ACT nasal spray [place] 1 [place] into each nostril 2 times daily ??? [...]
--- OUTSIDE RECORDS SUMMARY | 2024-04-25 14:28 | XMS_ITS | Encounter Summary ---
Author Organization [facility] Address [address] [place] [address] Care Team Providers Care Vice President Education Name Role Phone Stephanie Layton MD Primary Care Provider Encounter Details Date Type Department Care Team [...] on filedocumented in this encounter Care Teams Vice President Education Relationship Specialty Start Date End Date Stephanie Layton MD PCP - General Internal Medicine 08/03/20 documented as of this encounter
--- OUTSIDE RECORDS SUMMARY | 2024-04-25 14:28 | XMS_ITS | Encounter Summary ---
Author Organization [facility] Address [address] [place] [address] Care Team Providers Care Diamond Grader Name Role Phone Unavailable Primary Care Provider Unavailabl e Reason for Visit * Reason Onset Date Comments Follow-up 06/11/2018 Encounter Details Date Type Department Care Team (Late st Contact Info) Description 06/11/2018 Telephone [facility] [address] [place] [address] Brian Smith, MUSICAL INSTRUMENT MAKER-CRYPTOLOGICAL TECHNICIAN [address] [place] [address] Follow-up Social History Tobacco Use [...]
--- OUTSIDE RECORDS SUMMARY | 2024-04-25 14:28 | XMS_ITS | Encounter Summary ---
Author Organization [facility] Address [address] [place] [address] Care Team Providers Care Kick Press Setter Name Role Phone Stephanie Layton MD Primary Care Provider [phone] Reason for Visit * Reason Onset Date Comments Follow-up 08/05/2020 Encounter Details Date Type Department Care Team (Late st Contact Info) Description 08/05/2020 Telephone [facility] AT [address] [phone] Ada Rinaldi Follow-up Social History Tobacco Use [...] Message left advising patient to call service [facility] [phone] if they have any questions or concerns. documented in this encounter Plan of Treatment Not on file documented as of this encounter Visit Diagnoses Not on filedocumented in this encounter Care Teams Kick Press Setter Relationship Specialty Start Date End Date Stephanie Layton MD PCP - General Internal Medicine 08/03/20 documented as of this encounter
--- OUTSIDE RECORDS SUMMARY | 2024-04-25 14:28 | XMS_ITS | Encounter Summary ---
Author Organization [facility] Address [address] [place] [address] Care Team Providers Care Life Skills Teacher Name Role Phone Stephanie Layton MD Primary Care Provider [phone] Encounter Details Date Type Department Care Team [...] on filedocumented in this encounter Care Teams Life Skills Teacher Relationship Specialty Start Date End Date Stephanie Layton MD PCP - General Internal Medicine 08/03/20 documented as of this encounter
--- OUTSIDE RECORDS SUMMARY | 2024-04-25 14:28 | XMS_ITS | Continuity of Care Document ---
Author Organization [facility] Address [address] [facility] [address] [place] [address] Phone Care Team Providers Care Java Xml Developer Name Role Phone Sosa Rogers Unavailable Unavailable Advance Directives Directive Yes / No Effective Date File Name No Information Encounters Encounter Description Practice Location Reason(s) For Visit Diagnoses Date Provider Providers Copied on Encounter [facility], [address], [place], [place], [id number], [place] tel:[phone] [facility] No Information [address] , [address], [place], [address], [place]. tel:[phone] Family History Family Member Type Diagnosis Age At Onset No Information Payers Payer name Insurance type Covered republican ID Authoriza tion(s) No Information Social History [...]
--- OUTSIDE RECORDS SUMMARY | 2024-04-25 14:28 | XMS_ITS | Encounter Summary ---
Author Organization [facility] Address [address] [place] [address] Care Team Providers Care Meat Packer Name Role Phone Unavailable Primary Care Provider Unavailabl e Reason for Visit * Reason Onset Date Comments Follow-up 01/20/2017 Encounter Details Date Type Department Care Team (Late st Contact Info) Description 01/20/2017 Telephone [facility] [address] [phone] Dian Mark Follow-up Social History Tobacco Use [...]
--- OUTSIDE RECORDS SUMMARY | 2024-04-25 14:28 | XMS_ITS | Encounter Summary ---
Author Organization [facility] [email or web address] Address [address] [place] [address] Care Team Providers Care Motion Picture Photographer Name Role Phone Unavailable Primary Care Provider Unavailabl e Reason for Visit * Reason Onset Date Comments Patient Requested Call 06/09/2018 Encounter Details Date Type Department Care Team (Late st Contact Info) Description 06/09/2018 Telephone [facility] [employer] [facility] AT [address] [phone] Provider, Theodore Hsieh [place] Patient Requested Call Social History Tobacco Use Types Packs/Day Years Used Date Smoking Tobacco: Never Smokeless Tobacco: Never Sex and Gender Information Value Date Recorded Sex Assigned at Not on file Gender Identity Not on file Sexual Orientation Not on file documented as of this encounter Miscellaneous Notes * Telephone Encounter - Connor Chery APRN-CNP - 06/09/2018 5:54 PM STATISTICAL MACHINE MECHANIC Checked with pharmacy and per Meño the pharmacist they have checked with pt 's insurance and coupon card and they can not get any allergy eye drops below $116. Pt does not want to pay that. Recommend otc allergy eye drops and antihistamine such as Claritin or zyrtec. Pt agrees to plan ISTICAL MACHINE MECHANIC * Telephone Encounter - Claudia Matson - 06/09/2018 5:26 PM CST Who is calling? Self What is the reason for call? Patient would like to change one of her three prescriptions because itis really expensive. Expected Response from the Clinic? Please call her to discuss. Thank you. ISTICAL MACHINE MECHANIC documented in this encounter Plan of Treatment Not on file documented as of this encounter Visit Diagnoses Not on filedocumented in this encounter
--- OUTSIDE RECORDS SUMMARY | 2024-04-25 14:28 | XMS_ITS | Encounter Summary ---
Author Organization [facility] Address [address] [place] [address] Care Team Providers Care Customer Liaison Name Role Phone Stephanie Layton MD Primary Care Provider [phone] Reason for Visit * Reason Comments Eye Problem started today left e ye Encounter Details Date Type Department Care Team (Late st Contact Info) Description 08/03/2020 3:30 PM CDT Office Visit [facility] AT [address] [phone] Provider, Theodore [facility] Allergic conjunctivitis of left eye (Primary Dx) [...] Patient Instructions * Patient Instructions* Breana Spence, FISHING CAPTAIN-RIVET TOSSER - 08/03/2020 3:36 PM CDT Patient Education [...] refuse treatment. The above information is an transport aide only. It is not intended as medical advice for individual conditions or treatments. Talk to your doctor, nurse or pharmacist before following any medical regimen to see if it is safe and effective for you. ?? Copyright [employer] 2020 Information is for End User's use only and may not be sold, redistributed or otherwise used for commercial purposes. All illustrations and images included in CareNotes?? are the copyrighted property of [employer] or [employer] documented in this encounter Progress Notes * [...] encounter (Office Visit) with Provider, Theodore Hsieh [facility] Medication Sig ??? chloramphenicol (CHLOROMYCETIN) 30 mg/ml Take by mouth once daily ??? fluticasone propionate (FLONASE) 50 MCG/ACT nasal spray [place] 2 Sprays into each nostril once daily ??? mometasone (NASONEX) 50 MCG/ACT nasal spray [place] 1 [place] into each nostril 2 times daily ??? [...] file Gets together: Not on file Attends restoration service: Not on file Active member of [...] conjunctivitis documented in this encounter Care Teams Customer Liaison Relationship Specialty Start Date End Date Stephanie Layton MD PCP - General Internal Medicine 08/03/20 documented as of this encounter
--- OUTSIDE RECORDS SUMMARY | 2024-04-25 14:28 | XMS_ITS | Encounter Summary ---
Author Organization [facility] Address [address] [place] [address] Care Team Providers Care Presto Log Operator Name Role Phone Stephanie Layton MD Primary Care Provider [phone] Encounter Details Date Type Department Care Team [...] on filedocumented in this encounter Care Teams Presto Log Operator Relationship Specialty Start Date End Date Stephanie Layton MD PCP - General Internal Medicine 08/03/20 documented as of this encounter
--- OUTSIDE RECORDS SUMMARY | 2024-04-25 14:28 | XMS_ITS | Referral Summary ---
Author Organization [facility]N Address [address] [place] [address] Care Team Providers Care [employer] Name Role Phone Stephanie Layton MD Primary Care Provider [phone] Source Comments [facility] Affiliates and Associated Physician Practices is amultiple site organization consisting of ambulatory clinics and hospital sitesin [place], [place], [place] and [place]. This disclosure is being madepursuant to the Care Everywhere program and may not contain all information available regarding this patient. Last updated 18.[facility] Allergies Active Allergy Reactions Criticality Noted Date Comments Erythromycin 01/18/2017 Latex 01/18/2017 Penicillins Rash Medium 01/18/2017 Urethane 01/18/2017 Tetracycline Itching 06/09/2018 Medications * Be aware that medications may not be up to date on this document. Alwaysverify current medications with the patient. Medication Sig Dispensed Refills Start Date End Date Status fluticasone propionate (FLONASE) 50 MCG/ACT nasal spray [place] 2 Sprays into each nostril once daily Active mometasone (NASONEX) 50 MCG/ACT nasal spray [place] 1 [place] into each nostril 2 times daily Active [...] of Treatment Not on file Care Teams [employer] Relationship Specialty Start Date End Date Stephanie Layton MD PCP - General Internal Medicine 08/03/20
== END 2024-04-21 23:56 | disposition home or self-care (01) ==
PROVIDERS: Physician Assistant; Emergency Provider Registered Nurse; PCP Internal Medicine
DX: E86.0 Dehydration (principal); R10.9 Unspecified abdominal pain; Z20.822 Contact with and (suspected) exposure to COVID-19; K58.0 Irritable bowel syndrome with diarrhea; R94.31 Abnormal electrocardiogram [ECG] [EKG]
CPT/HCPCS: 36415; 71046; 80053; 81003; 82010; 83036; 83690; 83735; 84100; 84484; 85025; 85610; 85730; 87637; 93005; 96360; 99284; J7030